=== PATIENT | female | born 1970 | race Caucasian/White ===

== ENCOUNTER 2016-11-11 18:13 | Emergency (ER) | payer BC, OTHER ==
[2016-11-11] MEDS ORDERED: BUPIVACAINE 0.75% PF 10ML ONE (19:06)
[2016-11-11] MEDS ORDERED: LIDOCAINE 1% MDV 20 ML ONE (19:06)
[2016-11-11] MEDS ORDERED: TDaP 0.5 ML VIAL IM.VACC ONE (19:20)
== END 2016-11-11 20:48 | disposition home or self-care (01) ==
LOC: ER 18:13
DX: S61.011A Laceration without foreign body of right thumb without damage to nail, initial encounter (principal); S61.210A Laceration without foreign body of right index finger without damage to nail, initial encounter; W26.8XXA Contact with other sharp object(s), not elsewhere classified, initial encounter; Y93.89 Activity, other specified; Y92.008 Other place in unspecified non-institutional (private) residence as the place of occurrence of the external cause; S60.011A Contusion of right thumb without damage to nail, initial encounter; Z79.899 Other long term (current) drug therapy; Z23 Encounter for immunization
CPT/HCPCS: 90471